=== PATIENT | female | born 1985 | race Caucasian/White ===

== ENCOUNTER 2017-05-02 10:26 | Emergency (ER) | payer BC ==
[~2017-05-02] VITALS: Ht 165.1 cm; Wt 101.8 kg
[2017-05-02] MEDS ORDERED: TESSALON PERLE100 MG PO (13:10)
[2017-05-02] MEDS ORDERED: CHERATUSSIN AC473 ML PO (13:10)
[2017-05-02] MEDS ORDERED: LEVAQUIN750 MG PO (13:10)
[2017-05-02 13:21] LABS: MCH 29.5 PG (29.0-34.0); MCHC 34.3 G/DL (30.0-36.0); MCV 85.8 FL (83-99); MEAN PLAT.VOLUME 9.3 uM^3 (9.5-12.4); PLATELET COUNT 383 K/uL (156-360); RBC DIS.WIDTH-CV 12.4 % (11.8-14.6); RBC DIS.WIDTH-SD 38.6 % (39-53); RED BLOOD COUNT 4.31 M/uL (3.80-5.20); WHITE BLOOD COUNT 15.9 K/uL (4.1-10.2)
[2017-05-02 13:30] LABS: CHLORIDE 111 mEq/L (99-109); POTASSIUM 4.3 mEq/L (3.7-5.4); SODIUM 141 mEq/L (136-147)
[2017-05-02 13:32] LABS: GLUCOSE 99 mg/dL (70-99)
[2017-05-02 13:33] LABS: ANION GAP 7 MEQ/L (2-14)
[2017-05-02 13:36] LABS: GFR ESTIMATE (CALCULATED) > 59 mL/min/
[2017-05-02 13:37] LABS: UREA NITROGEN (BUN) 9 mg/dL (9-23)
[2017-05-02 13:44] LABS: QUANTITATIVE HCG < 4.0 MIU/ML
[2017-05-02 14:38] VITALS: BP 135/65
== END 2017-05-02 14:38 | disposition home or self-care (01) ==
LOC: EME 10:26
PROVIDERS: Nurse Practitioner Family
DX: J18.9 Pneumonia, unspecified organism (principal)
CPT/HCPCS: 71020; 80048; 83605; 84702; 85027; 93005; 99281; 99284; J0696